=== PATIENT | male | born 1950 | race African-American/Black ===

== ENCOUNTER 2017-03-31 15:48 | Emergency (ER) | payer MEDICARE, MEDICAID ==
[2017-03-31] MEDS ORDERED: Insulin Regular 300 UNITS/3 ML VIAL ONE (16:21)
[2017-03-31] MEDS ORDERED: Sodium Chloride 0.9% 100 ML ONE (16:21)
[2017-03-31 16:31] LABS: #Basophils 0.1 thou/uL (0.0-0.2); #Lymphocytes 4.6 thou/uL (1.20-3.40); #Monocytes 0.7 thou/uL (0.11-0.59); #Neutrophils 4.5 thou/uL (1.40-6.50); %Basophils 1.1 % (0.0-1.0); %Eosinophils 0.3 % (0.0-10.0); %Lymphocytes 46.3 % (21.0-51.0); %Monocytes 7.2 % (0.0-10.0); %Neutrophils 45.2 % (42.0-75.0); Hemoglobin 17.3 g/dL (14.0-18.0); Mean Corpuscular HGB CONC 32.1 g/dL (32.0-36.0); Mean Corpuscular Hemoglobin 29.3 pg (27.0-31.0); Mean Corpuscular Volume 91.4 fl (80.0-94.0); Platelet Count 235 thou/uL (130-400); RBC Distribution Width 12.5 % (11.5-14.5)
[2017-03-31 16:47] LABS: CKMB 5.1 ng/mL (0-6.6); Troponin I 0.026 ng/mL (< 0.028)
[2017-03-31 16:50] LABS: ALT (SGPT) 25 U/L (8-55); AST (SGOT) 18 U/L (5-34); Albumin 4.4 g/dL (3.4-4.8); Alkaline Phosphatase 102 U/L (40-150); Anion Gap 28 mmol/L (10-20); BUN (Urea Nitrogen) 34 mg/dL (8.4-25.7); Bilirubin, Total 0.4 mg/dL (0.2-1.2); Calc. Creatinine Clearance 0 mL/min (70-130); Calcium 10.6 mg/dL (7.8-10.44); Carbon Dioxide 12 mmol/L (23-31); Chloride 94 mmol/L (98-107); Estimated GFR-MDRD 35; Globulin 3.8 g/dL (2.4-3.5); Magnesium 2.5 mg/dL (1.6-2.6); Phosphorus 6.7 mg/dL (2.3-4.7); Potassium 5.6 mmol/L (3.5-5.1); Protein, Total 8.2 g/dL (5.8-8.1); Sodium 128 mmol/L (136-145)
--- NOTE | 2017-03-31 16:51 | RAD ---
PORTABLE AP CHEST: Date: 03-31-17 History: Cough for 4-5 days. UTI. Comparison: 03-22-16 FINDINGS: There is mild patchy parenchymal changes at the right lung base worrisome for developing pneumonia. Left lung is clear. Cardiac silhouette and pulmonary vasculature are within normal limits. IMPRESSION: Developing pneumonia at the right lung base. Follow up to complete resolution is recommended. POS: [facility]
[2017-03-31 16:52] LABS: Glucose 774 mg/dL (80-115)
[2017-03-31 16:58] LABS: Bilirubin Small (Negative); Blood, Urine Small (Negative); Glucose, Urine (Dipstick) 500 mg/dL (Negative); Leukocyte Trace (Negative); Nitrite Negative (Negative); Protein, Urine (Dipstick) Negative (Neg-Trace); Urobilinogen 0.2 mg/dL (0.2-1.0); pH, Urine 5.5 (5.0-9.0)
[2017-03-31] MEDS ORDERED: Sodium Chloride 0.9% 1,000 ML ONE (17:05)
[2017-03-31 17:15] LABS: pH (venous) 7.25 (7.35-7.45)
[2017-03-31 17:16] LABS: Base Excess -12.3 mEq/L (0 (+/- 2.5))
[2017-03-31 17:17] LABS: Clarity SL HAXY (Clear)
[2017-03-31 17:17] LABS: Hemoglobin (Hb) 16.4 g/dL (12.6-17.4)
[2017-03-31 17:19] LABS: Bacteria/HPF 1+ HPF (None Seen); RBC/HPF 0-3 HPF (0-3); Squamous Epithelial 0-3 HPF (0-3); Trichomonas/HPF 2+ HPF (None Seen)
== END 2017-03-31 17:42 | disposition short-term general hospital (02) ==
LOC: NAV ERS 15:48
DX: E10.10 Type 1 diabetes mellitus with ketoacidosis without coma (principal); E78.5 Hyperlipidemia, unspecified; I10 Essential (primary) hypertension; F17.210 Nicotine dependence, cigarettes, uncomplicated; Z79.899 Other long term (current) drug therapy
CPT/HCPCS: 36416; 71010; 80053; 81003; 81015; 82010; 82553; 82805; 83735; 84100; 84484; 85025; 96365; J1815; J7050

== ENCOUNTER 2017-04-05 11:58 | Emergency (ER) | payer MEDICARE, MEDICAID ==
[2017-04-05] MEDS ORDERED: Sodium Chloride 0.9% 1,000 ML ONE (12:18)
[2017-04-05] MEDS ORDERED: Insulin Regular 300 UNITS/3 ML VIAL ONE (12:53)
[2017-04-05 13:06] LABS: #Basophils 0.1 thou/uL (0.0-0.2); #Eosinphils 0.1 thou/uL (0.0-0.7); #Lymphocytes 4.9 thou/uL (1.20-3.40); #Monocytes 0.6 thou/uL (0.11-0.59); #Neutrophils 2.8 thou/uL (1.40-6.50); %Basophils 1.1 % (0.0-1.0); %Eosinophils 1.1 % (0.0-10.0); %Lymphocytes 57.6 % (21.0-51.0); %Monocytes 7.2 % (0.0-10.0); Hemoglobin 14.8 g/dL (14.0-18.0); Mean Corpuscular HGB CONC 32.5 g/dL (32.0-36.0); Mean Corpuscular Hemoglobin 29.2 pg (27.0-31.0); Mean Platelet Volume 11.2 fL (7.4-10.4); Platelet Count 196 thou/uL (130-400); RBC Distribution Width 12.8 % (11.5-14.5); Red Blood Cell (RBC) Count 5.06 mill/uL (4.70-6.10); White Blood Cell (WBC) Count 8.5 thou/uL (4.8-10.8)
[2017-04-05 13:07] LABS: pH (venous) 7.41 (7.35-7.45)
[2017-04-05 13:08] LABS: Base Excess -3.5 mEq/L (0 (+/- 2.5))
[2017-04-05 13:09] LABS: Hemoglobin (Hb) 14.4 g/dL (12.6-17.4)
[2017-04-05 13:10] LABS: Bilirubin Negative (Negative); Blood, Urine Trace (Negative); Clarity Clear (Clear); Glucose, Urine (Dipstick) >=1000 mg/dL (Negative); Leukocyte Negative (Negative); Nitrite Negative (Negative); Protein, Urine (Dipstick) Negative (Neg-Trace); Specific Gravity, Urine 1.015 (1.005-1.030); Urobilinogen 0.2 mg/dL (0.2-1.0); pH, Urine 6.5 (5.0-9.0)
[2017-04-05 13:12] LABS: ALT (SGPT) 21 U/L (8-55); AST (SGOT) 16 U/L (5-34); Albumin 3.9 g/dL (3.4-4.8); Alkaline Phosphatase 78 U/L (40-150); Anion Gap 15 mmol/L (10-20); BUN (Urea Nitrogen) 12 mg/dL (8.4-25.7); Bilirubin, Total 0.3 mg/dL (0.2-1.2); Calc. Creatinine Clearance 0 mL/min (70-130); Carbon Dioxide 23 mmol/L (23-31); Chloride 98 mmol/L (98-107); Estimated GFR-MDRD 69; Globulin 3.8 g/dL (2.4-3.5); Glucose 534 mg/dL (80-115); Magnesium 2.1 mg/dL (1.6-2.6); Potassium 4.4 mmol/L (3.5-5.1); Protein, Total 7.7 g/dL (5.8-8.1); Sodium 132 mmol/L (136-145)
[2017-04-05 13:26] LABS: RBC/HPF 0-3 HPF (0-3); Squamous Epithelial 0-3 HPF (0-3)
--- NOTE | 2017-04-05 13:45 | RAD ---
CHEST 2 VIEWS: HISTORY: Cough. Chest pain. COMPARISON: 03/31/17. FINDINGS: Cardiac silhouette is magnified by projection. Pulmonary vasculature is upper limits of normal. Mi ld reticulonodular interstitial prominence is slightly more pronounced than on the previous exam. C alcified granulomata are consistent with healed granulomatous disease. IMPRESSION: Borderline pulmonary vascular congestion. POS: [facility]
== END 2017-04-05 14:18 | disposition home or self-care (01) ==
LOC: NAV ERS 11:58
DX: E11.65 Type 2 diabetes mellitus with hyperglycemia (principal); E78.5 Hyperlipidemia, unspecified; I10 Essential (primary) hypertension; F17.210 Nicotine dependence, cigarettes, uncomplicated; Z79.84 Long term (current) use of oral hypoglycemic drugs; Z79.899 Other long term (current) drug therapy
CPT/HCPCS: 36416; 71020; 80053; 81003; 81015; 82805; 83735; 84100; 85025; 94760; 96361; 96374; J1815; J7050

== ENCOUNTER 2017-06-17 16:25 | Emergency (ER) | payer MEDICARE, OTHER ==
--- NOTE | 2017-06-17 17:00 | RAD ---
LEFT FOOT RADIOGRAPHS THREE VIEWS 06/17/17 PROVIDED CLINICAL HISTORY: Left foot pain status post injury. 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 There is no evidence for an acute fracture or oth er acute osseous abnormality. Degenerative changes are seen at the great toe MTP joint. Alignment stone ears anatomic. IMPRESSION: No evidence for an acute osseous abnormality. If there is persistent clinical concern, conservative m anagement and followup imaging are advised. POS: [facility]
== END 2017-06-17 17:08 | disposition home or self-care (01) ==
LOC: NAV ERS 16:25
DX: S93.602A Unspecified sprain of left foot, initial encounter (principal); B35.1 Tinea unguium; E78.5 Hyperlipidemia, unspecified; E11.9 Type 2 diabetes mellitus without complications; I10 Essential (primary) hypertension; F17.210 Nicotine dependence, cigarettes, uncomplicated; Z79.899 Other long term (current) drug therapy; Z79.4 Long term (current) use of insulin; W01.0XXA Fall on same level from slipping, tripping and stumbling without subsequent striking against object, initial encounter

== ENCOUNTER 2018-05-16 09:07 | Emergency (ER) | payer MEDICARE, MEDICAID ==
[2018-05-16] MEDS ORDERED: Nitroglycerin 0.4 MG TAB (25 Tab Bottle) ONE (09:24)
[2018-05-16 09:31] LABS: Hemoglobin 17.4 g/dL (14.0-18.0); Mean Corpuscular HGB CONC 31.7 g/dL (32.0-36.0); Mean Corpuscular Hemoglobin 29.2 pg (27.0-31.0); Mean Corpuscular Volume 92.2 fL (78.0-98.0); Mean Platelet Volume 11.3 fL (7.4-10.4); Platelet Count 223 thou/uL (130-400); RBC Distribution Width 13.5 % (11.5-14.5); Red Blood Cell (RBC) Count 5.97 mill/uL (4.70-6.10); White Blood Cell (WBC) Count 10.5 thou/uL (4.8-10.8)
[2018-05-16 09:50] LABS: ALT (SGPT) 17 U/L (8-55); AST (SGOT) 16 U/L (5-34); Albumin 4.4 g/dL (3.4-4.8); Alkaline Phosphatase 89 U/L (40-150); Anion Gap 15 mmol/L (10-20); BUN (Urea Nitrogen) 10 mg/dL (8.4-25.7); Bilirubin, Total 0.4 mg/dL (0.2-1.2); Calc. Creatinine Clearance 0 mL/min (70-130); Calcium 9.9 mg/dL (7.8-10.44); Carbon Dioxide 26 mmol/L (23-31); Chloride 100 mmol/L (98-107); Estimated GFR-MDRD 72; Globulin 3.9 g/dL (2.4-3.5); Glucose 245 mg/dL (80-115); Potassium 4.1 mmol/L (3.5-5.1); Protein, Total 8.3 g/dL (5.8-8.1); Sodium 137 mmol/L (136-145)
[2018-05-16 09:51] LABS: CKMB 2.7 ng/mL (0-6.6); Troponin I Less than 0.010 ng/mL (< 0.028)
[2018-05-16 10:07] LABS: Lymphocytes 70 % (21-51); MDiff Complete? YES; Monocytes 4 % (0-10); Neutrophil 25 % (42-75); PLT Morphology Comment Appears Adequate; RBC Morphology Normal; Reactive Lymphocytes 1 % (0-10)
--- NOTE | 2018-05-16 11:19 | RAD ---
RADIOGRAPH CHEST 1 VIEW: HISTORY: 68-year-old male with chest pain. FINDINGS: There is no air space density, pulmonary edema, or pneumothorax. The lateral costophrenic angles are sharp. IMPRESSION: No acute pulmonary findings. hernán [] POS: [facility]
== END 2018-05-16 10:50 | disposition short-term general hospital (02) ==
LOC: NAV ERS 09:07
DX: R07.89 Other chest pain (principal); E78.5 Hyperlipidemia, unspecified; E11.9 Type 2 diabetes mellitus without complications; I10 Essential (primary) hypertension; F17.210 Nicotine dependence, cigarettes, uncomplicated; Z79.899 Other long term (current) drug therapy; Z79.4 Long term (current) use of insulin
CPT/HCPCS: 36415; 36416; 71045; 80053; 82553; 84484; 85025; 93005; 94760

== ENCOUNTER 2019-03-22 17:49 | Emergency (ER) | payer MEDICARE, MEDICAID ==
[2019-03-22 18:24] LABS: Hemoglobin 15.4 g/dL (14.0-18.0); Mean Corpuscular HGB CONC 32.5 g/dL (32.0-36.0); Mean Corpuscular Hemoglobin 29.2 pg (27.0-31.0); Mean Corpuscular Volume 89.6 fL (78.0-98.0); Platelet Count 275 thou/uL (130-400); RBC Distribution Width 13.1 % (11.5-14.5); Red Blood Cell (RBC) Count 5.27 mill/uL (4.70-6.10); White Blood Cell (WBC) Count 11.1 thou/uL (4.8-10.8)
[2019-03-22 18:39] LABS: ALT (SGPT) 21 U/L (8-55); AST (SGOT) 14 U/L (5-34); Albumin 4.3 g/dL (3.4-4.8); Alkaline Phosphatase 90 U/L (40-110); Anion Gap 17 mmol/L (10-20); BUN (Urea Nitrogen) 12 mg/dL (8.4-25.7); Bilirubin, Total 0.2 mg/dL (0.2-1.2); Calc. Creatinine Clearance 0 mL/min (70-130); Calcium 9.8 mg/dL (7.8-10.44); Carbon Dioxide 21 mmol/L (23-31); Chloride 103 mmol/L (98-107); Estimated GFR-MDRD 46; Globulin 3.5 g/dL (2.4-3.5); Glucose 393 mg/dL (80-115); Lipase 95 U/L (8-78); Potassium 3.8 mmol/L (3.5-5.1); Protein, Total 7.8 g/dL (5.8-8.1); Sodium 137 mmol/L (136-145)
[2019-03-22 18:57] LABS: Eosinophils 1 % (0-10); Lymphocytes 56 % (21-51); MDiff Complete? YES; Monocytes 2 % (0-10); Neutrophil 41 % (42-75); Platelet Morphology Comment Appears Adequate; RBC Morphology Normal
[2019-03-22 19:57] LABS: Bacteria/HPF None Seen HPF (None Seen); Bilirubin Negative (Negative); Blood, Urine Moderate (Negative); Clarity Clear (Clear); Glucose, Urine (Dipstick) 500 mg/dL (Negative); Leukocyte Trace (Negative); Nitrite Negative (Negative); Protein, Urine (Dipstick) Negative (Neg-Trace); RBC/HPF 0-3 HPF (0-3); Squamous Epithelial 0-3 HPF (0-3); Urobilinogen 0.2 mg/dL (Less than 2)
[2019-03-22 20:14] LABS: Trichomonas/HPF Rare HPF (None Seen)
[2019-03-22] MEDS ORDERED: Sodium Chloride 0.9% 1,000 ML ONE (20:57)
[2019-03-22] MEDS ORDERED: metroNIDAZOLE 500 MG TAB ONE (20:57)
[2019-03-22] MEDS ORDERED: Cephalexin 250 MG CAP ONE (20:57)
== END 2019-03-22 21:00 | disposition home or self-care (01) ==
LOC: NAV ERS 17:49
DX: E11.65 Type 2 diabetes mellitus with hyperglycemia (principal); A59.9 Trichomoniasis, unspecified; N39.0 Urinary tract infection, site not specified; E86.0 Dehydration; E78.5 Hyperlipidemia, unspecified; I10 Essential (primary) hypertension; F17.210 Nicotine dependence, cigarettes, uncomplicated; Z79.4 Long term (current) use of insulin; Z79.899 Other long term (current) drug therapy
CPT/HCPCS: 36416; 80053; 81003; 81015; 82010; 82550; 83690; 85025; 87077; 87086; 93005; 94760; 96360; J7050

== ENCOUNTER 2020-12-11 18:48 | Emergency (ER) | payer MEDICARE, MEDICAID ==
[~2020-12-11 18:48] MED LIST: Iopamidol 370 76% 100 ML VIAL ONE
[2020-12-11] MEDS ORDERED: Aspirin Chewable 81 MG TAB ONE (19:01)
[2020-12-11] MEDS ORDERED: Nitroglycerin 0.4 MG TAB (25 Tab Bottle) ONE (19:15)
[2020-12-11] MEDS ORDERED: Sodium Chloride 0.9% 1,000 ML ONE (19:15)
[2020-12-11 19:27] LABS: ALT (SGPT) 13 U/L (8-55); AST (SGOT) 15 U/L (5-34); Albumin 4.3 g/dL (3.4-4.8); Alkaline Phosphatase 85 U/L (40-110); Anion Gap 16 mmol/L (10-20); BUN (Urea Nitrogen) 7 mg/dL (8.4-25.7); Bilirubin, Total 0.2 mg/dL (0.2-1.2); Calc. Creatinine Clearance 0 mL/min (70-130); Calcium 9.2 mg/dL (7.8-10.44); Carbon Dioxide 20 mmol/L (23-31); Chloride 103 mmol/L (98-107); Globulin 4.2 g/dL (2.4-3.5); Glucose 112 mg/dL (80-115); Potassium 3.7 mmol/L (3.5-5.1); Protein, Total 8.5 g/dL (5.8-8.1); Sodium 135 mmol/L (136-145)
[2020-12-11 19:28] LABS: Hemoglobin 17.1 g/dL (14.0-18.0); Mean Corpuscular HGB CONC 31.3 g/dL (32.0-36.0); Mean Corpuscular Hemoglobin 29.4 pg (27.0-31.0); Mean Corpuscular Volume 93.9 fL (78.0-98.0); Mean Platelet Volume 7.7 fL (7.4-10.4); Platelet Count 307 thou/uL (130-400); RBC Distribution Width 13.6 % (11.5-14.5); Red Blood Cell (RBC) Count 5.84 mill/uL (4.70-6.10)
[2020-12-11] MEDS ORDERED: Pantoprazole 40 MG VIAL ONE (19:40)
[2020-12-11 19:44] LABS: Bilirubin Negative (Negative); Blood, Urine Moderate (Negative); Clarity Clear (Clear); Glucose, Urine (Dipstick) >=1000 mg/dL (Negative); Ketone, Urine Negative (Negative); Leukocyte Negative (Negative); Nitrite Negative (Negative); Protein, Urine (Dipstick) 100 mg/dL (Neg-Trace); Specific Gravity, Urine 1.025 (1.005-1.030); Urobilinogen 0.2 mg/dL (Less than 2); pH, Urine 5.5 (5.0-9.0)
[2020-12-11] MEDS ORDERED: Enoxaparin Sodium 100 MG/ML SYRINGE ONE (19:47)
[2020-12-11 19:53] LABS: Bacteria/HPF Rare-Few HPF (None Seen); Squamous Epithelial 0-3 HPF (0-3); WBC/HPF 0-3 HPF (0-3)
[2020-12-11 20:01] LABS: Band 1 % (5-11); Eosinophils 2 % (0-10); Lymphocytes 60 % (21-51); MDiff Complete? YES; Monocytes 5 % (0-10); Neutrophil 32 % (42-75)
[2020-12-11 20:27] LABS: CKMB 3.5 ng/mL (0-6.6)
== END 2020-12-11 21:06 | disposition left against medical advice (07) ==
LOC: NAV ERS 18:48
DX: I21.4 Non-ST elevation (NSTEMI) myocardial infarction (principal); R10.13 Epigastric pain; E78.5 Hyperlipidemia, unspecified; I10 Essential (primary) hypertension; E03.9 Hypothyroidism, unspecified; F17.210 Nicotine dependence, cigarettes, uncomplicated; Z79.84 Long term (current) use of oral hypoglycemic drugs; Z79.899 Other long term (current) drug therapy
CPT/HCPCS: 71045; 71275; 80053; 81003; 81015; 82553; 83690; 84484; 85025; 85379; 93005; 96372; 96374; C9113; J1650; J7050; Q9967

== ENCOUNTER 2021-06-10 11:30 | Outpatient (CLI) | payer MEDICARE, MEDICAID | END 2021-06-10 11:31 | disposition home or self-care (01) | LOC: NAV RAD 11:30 | PROVIDERS: ATTEND Family Medicine | DX: K21.9 Gastro-esophageal reflux disease without esophagitis (principal) | CPT/HCPCS: 74019 ==